=== PATIENT | female | born 1975 | race African-American/Black ===

== ENCOUNTER 2017-04-15 11:15 | Inpatient (IN) | payer MEDICARE, MEDICAID ==
[~2017-04-15] VITALS: Ht 160 cm; Wt 98.6 kg
[~2017-04-15 11:15] MED LIST: ATEN-100 PO; DOCU1CAP39 PO; KPHOS250 PO; MYCO500 PO; NYST500KS SWISH-SWAL; OXYC1SOL5 PO; PRAZ1 PO; PROT40TA PO; SULF-154 PO; TACR5 PO; TUMS CHEW; VALG450 PO
[2017-04-15] MEDS ORDERED: ceFAZolin 1,000 MG/NS 100 ML IV SCH ×2 (11:45)
[2017-04-15] MEDS ORDERED: METOPROLOL TARTRATE 25 MG TAB PO PRN (11:45)
[2017-04-15] MEDS ORDERED: CHLORHEXIDINE GLUCONATE 2 % 1 PACK (2 CLOTHS) TOPICAL PRN (11:45)
[2017-04-15] MEDS ORDERED: LACTATED RINGER'S 1000 ML IV PRN (11:45)
[2017-04-15] MEDS ORDERED: SODIUM CHLORID 0.9% 500 ML IV PRN (11:45)
[2017-04-15] MEDS ORDERED: POVIDONE IODINE 5% (ANTISEPSIS KIT) 4 APPLICATIONS EACH NARE PRN (11:45)
[2017-04-15] MEDS ORDERED: INSULIN HUMAN REGULAR 1,000 UNITS/10 ML VIAL SQ PRN (11:45)
[2017-04-15] MEDS ORDERED: TACR5 PO (12:07)
[2017-04-15] MEDS ORDERED: CINA30 PO (12:07)
[2017-04-15] MEDS ORDERED: ONCETAB7 PO (12:07)
[2017-04-15] MEDS ORDERED: PRED2.5T PO (12:07)
[2017-04-15] MEDS ORDERED: MYCO500 PO (12:07)
[2017-04-15] MEDS ORDERED: ATEN50TA PO (12:07)
[2017-04-15] MEDS ORDERED: VITA100064 PO (12:07)
[2017-04-15] MEDS ORDERED: PRAZ5CAP PO (12:07)
[2017-04-15] MEDS ORDERED: TACR1 PO (12:07)
[2017-04-15] MEDS ORDERED: K-PHTAB PO (12:07)
[2017-04-15] MEDS ORDERED: PROT40TA PO (12:07)
[2017-04-15 12:20] VITALS: BP 125/77; PULSE 69; RESP 16; TEMP 100.2; O2SAT 100
[2017-04-15 12:28] LABS: AUTOMATED NEUTROPHIL # 7.5 TH/MM3 (1.8-7.7); BASOPHIL % 0.2 % (0.0-2.0); EOSINOPHIL % 0.4 % (0.0-4.0); HEMATOCRIT 36.1 % (35.0-46.0); HEMO FLAGS DIFF FINAL; LYMPHOCYTE # 0.8 TH/MM3 (1.0-4.8); MEAN CELL VOLUME 85.9 FL (80.0-100.0); MEAN CORPUSCULAR HEMOGLOBIN 27.7 PG (27.0-34.0); MEAN CORPUSCULAR HGB CONC 32.2 % (32.0-36.0); MONO % 4.3 % (0.0-8.0); NEUT % 86.1 % (16.0-70.0); PLATELET COUNT 189 TH/MM3 (150-450); RED CELL DISTRIBUTION WIDTH 13.4 % (11.6-17.2); WHITE BLOOD COUNT 8.7 TH/MM3 (4.0-11.0)
[2017-04-15] MEDS ORDERED: PHENYLEPH/NS 1000 MCG/10 ML SYR IV ONE (12:34)
[2017-04-15] MEDS ORDERED: ePHEDrine/NS 25 MG/5 ML SYR IV ONE (12:34)
[2017-04-15] MEDS ORDERED: PROPOFOL 200 MG/20 ML AMP IV ONE (12:34)
[2017-04-15] MEDS ORDERED: LACTATED RINGER'S 1000 ML INJ 1,000 ML IV ONE (12:34)
[2017-04-15] MEDS ORDERED: ONDANSETRON HCL 4 MG/2 ML VIAL IV PUSH ONE (12:34)
[2017-04-15 12:43] LABS: BICARBONATE 19.2 MEQ/L (21.0-32.0); POTASSIUM 4.9 MEQ/L (3.5-5.1)
[2017-04-15] MEDS ORDERED: MIDAZOLAM HCL 2 MG/2 ML VIAL ONE (14:07)
--- NOTE | 2017-04-15 14:24 | EKG ---
Date Performed: 04/15/2017 Time Performed: 11:54:49 PTAGE: 41 years EKG: Sinus rhythm WITH FIRST DEGREE AV BLOCK Since previous tracing, no significant change noted ABNORMAL ECG PREVIOUS TRACING : 01/27/2016 08.49 DOCTOR: Sajan Licona Interpretating Date/Time 04/15/2017 14:19:53
[2017-04-15] MEDS ORDERED: BUPIVACAINE/EPINEPHRINE 0.5% PF 30 ML VIAL INFIL ONE (14:55)
[2017-04-15] MEDS ORDERED: DO NOT ADM ANY ANTICOAGULANT DRUGS PRN (17:00)
[2017-04-15] MEDS ORDERED: fentaNYL CITRATE 250 MCG/5 ML AMP ONE (17:06)
[2017-04-15] MEDS ORDERED: *morphine SULFATE 8 MG/ML PERIprocedure ONLY ONE (17:27)
[2017-04-15] MEDS ORDERED: CALCIUM CARBONATE 500 MG CHEWABLE TAB PO SCH (18:00)
[2017-04-15] MEDS ORDERED: MORPHINE SULFATE 4 MG/ML INJ IV PRN (18:15)
[2017-04-15] MEDS ORDERED: CALCIUM CHLORIDE IV PRN ×2 (18:15)
[2017-04-15] MEDS ORDERED: WATE IV PRN ×2 (18:15)
[2017-04-15] MEDS ORDERED: ONDANSETRON HCL 4 MG/2 ML VIAL IV PUSH PRN (18:15)
[2017-04-15] MEDS ORDERED: DEXTROSE 5% IV PRN ×2 (18:15)
[2017-04-15 20:00] VITALS: BP 146/82; PULSE 72; RESP 20; TEMP 98.1; O2SAT 100
[2017-04-15] MEDS ORDERED: PILL SPLITTER OTHER PRN (20:15)
[2017-04-15] MEDS: ATENOLOL 50 MG TAB PO SCH (20:59)
[2017-04-15] MEDS: POTASSIUM PHOSPHATE MONOBASIC 500 MG TAB PO SCH ×2 (21:00→22:39)
[2017-04-15] MEDS: CALCIUM CARBONATE 500 MG CHEWABLE TAB PO SCH (21:26)
[2017-04-15] MEDS: PANTOPRAZOLE SOD 40 MG DELAYED RELEASE TAB PO SCH (21:26)
[2017-04-15] MEDS: MYCOPHENOLATE MOFETIL 500 MG TAB PO SCH (21:29)
[2017-04-15] MEDS: CHOLECALCIFEROL (VIT D3) 1000 UNIT TAB PO SCH (21:31)
[2017-04-15] MEDS: TACROLIMUS 5 MG CAP PO SCH ×2 (22:00→22:50)
[2017-04-15] MEDS: PRAZOSIN HCL 5 MG CAP PO SCH (22:39)
[2017-04-15] MEDS: CINACALCET HYDROCHLORIDE 30 MG TAB PO SCH (22:39)
[2017-04-15] MEDS: TACROLIMUS 1 MG CAP PO SCH (22:40)
[2017-04-16] VITALS (7 sets, daily range): BP systolic 104–164; BP diastolic 60–97; PULSE 75–102; RESP 16–20; TEMP 96.1–99.1; O2SAT 94–100
[2017-04-16] MEDS: TACROLIMUS 1 MG CAP PO SCH ×2 (06:25→17:47)
[2017-04-16] MEDS: TACROLIMUS 5 MG CAP PO SCH ×2 (06:30→17:47)
[2017-04-16] MEDS: PANTOPRAZOLE SOD 40 MG DELAYED RELEASE TAB PO SCH ×2 (08:12→21:16)
[2017-04-16] MEDS: ACETAMINOPHEN/HYDROcodone 325 MG/5 MG TAB PO PRN ×3 (08:12→17:48)
[2017-04-16] MEDS: CHOLECALCIFEROL (VIT D3) 1000 UNIT TAB PO SCH ×2 (08:13→21:16)
[2017-04-16] MEDS: MULTIVITAMIN TAB PO SCH (08:13)
[2017-04-16] MEDS: CALCIUM CARBONATE 500 MG CHEWABLE TAB PO SCH ×4 (08:13→21:16)
[2017-04-16] MEDS: PRAZOSIN HCL 5 MG CAP PO SCH ×2 (08:13→21:16)
[2017-04-16] MEDS: DOCUSATE SODIUM 100 MG CAP PO SCH (08:13)
[2017-04-16] MEDS: CINACALCET HYDROCHLORIDE 30 MG TAB PO SCH ×2 (08:13→21:16)
[2017-04-16] MEDS: ATENOLOL 50 MG TAB PO SCH ×2 (08:13→21:00)
[2017-04-16] MEDS: POTASSIUM PHOSPHATE MONOBASIC 500 MG TAB PO SCH ×2 (08:14→21:16)
[2017-04-16] MEDS: MYCOPHENOLATE MOFETIL 500 MG TAB PO SCH ×2 (08:14→21:17)
[2017-04-16] MEDS: predniSONE 5 MG TAB PO SCH (08:14)
[2017-04-16] MEDS ORDERED: BENZOCAINE 6 MG/MENTHOL 10 MG LOZENGE BUCCAL PRN (08:45)
[2017-04-16] MEDS: GABAPENTIN 300 MG CAP PO PRN ×2 (11:44→21:15)
[2017-04-17] VITALS: BP 106/67; PULSE 81; RESP 20; TEMP 96.3; O2SAT 95
[2017-04-17] MEDS: TACROLIMUS 5 MG CAP PO SCH (05:03)
[2017-04-17] MEDS: TACROLIMUS 1 MG CAP PO SCH (05:03)
[2017-04-17] MEDS: ACETAMINOPHEN/HYDROcodone 325 MG/5 MG TAB PO PRN (05:04)
[2017-04-17 08:00] VITALS: BP 128/78; PULSE 90; RESP 17; TEMP 97.8; O2SAT 97
[2017-04-17] MEDS ORDERED: NORC5TAB PO (08:24)
[2017-04-17] MEDS: CINACALCET HYDROCHLORIDE 30 MG TAB PO SCH (08:29)
[2017-04-17] MEDS: PRAZOSIN HCL 5 MG CAP PO SCH (08:29)
[2017-04-17] MEDS: CALCIUM CARBONATE 500 MG CHEWABLE TAB PO SCH (08:29)
[2017-04-17] MEDS: ATENOLOL 50 MG TAB PO SCH (08:29)
[2017-04-17] MEDS: predniSONE 5 MG TAB PO SCH (08:30)
[2017-04-17] MEDS: CHOLECALCIFEROL (VIT D3) 1000 UNIT TAB PO SCH (08:32)
[2017-04-17] MEDS: MYCOPHENOLATE MOFETIL 500 MG TAB PO SCH (08:32)
[2017-04-17] MEDS: PANTOPRAZOLE SOD 40 MG DELAYED RELEASE TAB PO SCH (08:32)
[2017-04-17] MEDS: DOCUSATE SODIUM 100 MG CAP PO SCH (08:32)
[2017-04-17] MEDS: MULTIVITAMIN TAB PO SCH (08:32)
[2017-04-17] MEDS: POTASSIUM PHOSPHATE MONOBASIC 500 MG TAB PO SCH (09:00)
--- NOTE | 2017-04-17 12:30 | MP ---
cc: SHUBHAM SANCHEZ M.D., JAMES MATEO, RODRIGO B. 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 POSTOPERATIVE DIAGNOSIS Hyperparathyroidism secondary to chronic renal dysfunction - status post successful renal transplantation. PROCEDURE Total parathyroidectomy SURGEON Zaheer Dela Cruz MD [facility] [place] ANESTHESIA General endotracheal DESCRIPTION OF THE OPERATIVE PROCEDURE With the patient in the supine position, general endotracheal anesthesia was induced, the cervical spine prepped with Betadine, extended and prepped and draped in a sterile fashion. Following a protocol time-out, the skin and subcutaneous tissue along the proposed incisional area was preemptively infiltrated with 0.5% Marcaine with epinephrine. A curvilinear collar type incision was performed along Lucho's lines 2 cm cephalad to the suprasternal notch. Subplatysmal skin flaps were dissected superiorly to the thyroid notch and inferiorly to the suprasternal notch. The strap muscle fascia was incised within the midline and strap muscles mobilized laterally. Right and left thyroid lobes were mobilized superomedially. The right and left superior and inferior parathyroid glands were found within their classical anatomical locations. Each gland was mobilized upon its vascular pedicle which was divided between hemoclips and the glands removed entirely. Care was taken to identify the right and left recurrent laryngeal nerves and carefully protect them. Strict hemostasis was achieved. Chris Beard MD confirmed parathyroid hyperplasia within all four specimens. The strap muscle fascia was reapproximated within the midline with continuous 4-0 Monocryl. The platysmal fascia was reapproximated with continuous 4-0 Monocryl and skin reapproximated with continuous subcuticular 5-0 Monocryl. Reinforced with Steri-Strips and covered with sterile coverlet dressing. Instrument, needle, sponge count correct x2. No operative complications. The patient was returned to the recovery room in stable condition having tolerated the procedure well. MD COOPER Willis/MARIA R /5:32 PM /12:29 PM
[2017-04-17 12:46] VITALS: TEMP 98.8
== END 2017-04-17 13:06 | disposition home or self-care (01) | DRG 674 ==
LOC: HSDC 11:15 → HSDI 17:23 → N07A 18:17
PROVIDERS: ADMIT Surgery Vascular Surgery; ATTEND Surgery Vascular Surgery
PROC: 0GTL0ZZ Resection of Right Superior Parathyroid Gland, Open Approach (ICD-10-PCS; 2017-04-15)
PROC: 0GTM0ZZ Resection of Left Superior Parathyroid Gland, Open Approach (ICD-10-PCS; 2017-04-15)
PROC: 0GTN0ZZ Resection of Right Inferior Parathyroid Gland, Open Approach (ICD-10-PCS; 2017-04-15)
PROC: 0GTP0ZZ Resection of Left Inferior Parathyroid Gland, Open Approach (ICD-10-PCS; principal; 2017-04-15 14:09)
DX: N25.81 Secondary hyperparathyroidism of renal origin (principal); Z94.0 Kidney transplant status; I10 Essential (primary) hypertension; G47.30 Sleep apnea, unspecified; D64.9 Anemia, unspecified; E66.9 Obesity, unspecified; F12.10 Cannabis abuse, uncomplicated
CPT/HCPCS: 78808; 80048; 82310; 85025; 88305; 88331; 93005; A9500; J0690; J2250; J2270; J2370; J2405; J3010; J7120; J7507; J7512; J7517